=== PATIENT | male | born 1955 | race American Indian/Alaskan Native ===

== ENCOUNTER 2018-09-27 22:06 | Inpatient (IN) | payer MEDICARE, MEDICAID ==
--- NOTE | 2018-09-27 22:35 | ED PDOC ---
Arrival/HPI - General Chief Complaint: Trauma Time Seen by Provider: 09/27/18 22:16 Historian: Patient, Family - History of Present Illness Narrative History of Present Illness (Text): 09/27/18 22:34 Juma Padilla is a 63 year old male, whose past medical history includes hypertension, who presents to the ED status post fall 4 days ago. Patient states he accidentally tripped and fell on to his left side while at a doctor's office. Patient now complaining of worsening left-sided neck pain, shoulder, and upper chest pain. Patient denies any fever, chills, shortness of breath, nausea, vomiting, diarrhea, urinary symptoms, back pain, headache, dizziness, or any other complaints. Symptom Onset: Gradual Symptom Course: Unchanged Activities at Onset: Light Context: Home Past Medical History - Provider Review Nursing Documentation Reviewed: Yes - Infectious Disease Hx of Infectious Diseases: None - Tetanus Immunization Tetanus Immunization: Unknown - Cardiac Hx Hypertension: Yes Hx Pacemaker: No - Pulmonary Hx Chronic Obstructive Pulmonary Disease (COPD): No Hx Emphysema: No - Neurological HX Cerebrovascular Accident: No Hx Dementia: No Hx Seizures: No - Renal Hx Renal Disorder: No - Hematological/Oncological Hx Cancer: No - Musculoskeletal/Rheumatological Hx Musculoskeletal Disorders: No - Gastrointestinal Hx Gastroesophageal Reflux: No - Psychiatric Hx Depression: No Hx Emotional Abuse: No Hx Physical Abuse: No Hx Substance Use: No - Past Surgical History Past Surgical History: No Previous - Surgical History Hx Amputation: No Hx Appendectomy: No Hx Cholecystectomy: No Hx Gastric Bypass Surgery: No Hx Hysterectomy: No Hx Joint Replacement: No Hx Kidney Transplant: No Hx Liver Transplant: No Hx Mastectomy: No Hx Musculoskeletal Surgery: No Hx Open Heart Surgery: No Hx Orthopedic Surgery: No Hx Splenectomy: No Hx Valve Replacement: No - Suicidal Assessment Feels Threatened In Home Enviroment: No Family/Social History - Physician Review Nursing Documentation Reviewed: Yes Family/Social History: Unknown Family HX Smoking Status: Never Smoked Hx Alcohol Use: Yes Hx Substance Use: No Hx Substance Use Treatment: No Allergies/Home Meds Allergies/Adverse Reactions: Allergies No Known Allergies Allergy (Verified 09/11/11 02:08) Home Medications: Home Meds Medication Instructions Recorded Confirmed Lisinopril 10 mg PO DAILY 05/14/12 05/14/12 Review of Systems - Physician Review All systems were reviewed & negative as marked: Yes - Review of Systems Constitutional: Normal. absent: Fevers Eyes: Normal ENT: Normal Respiratory: Normal. absent: SOB, Cough Cardiovascular: Normal. absent: Chest Pain Gastrointestinal: Normal. absent: Abdominal Pain, Diarrhea, Nausea, Vomiting Genitourinary Male: Normal. absent: Dysuria, Frequency, Hematuria, Urinary Output Changes Musculoskeletal: Arthralgias (+left shoulder pain), Neck Pain, Other (+left upper rib pain). absent: Back Pain Skin: Normal Neurological: Normal Endocrine: Normal Hemo/Lymphatic: Normal Psychiatric: Normal Physical Exam Vital Signs Reviewed: Yes Vital Signs Temp Pulse Resp BP Pulse Ox 09/27/18 22:17 97.9 F 66 18 146/69 94 L Temperature: Afebrile Blood Pressure: Normal Pulse: Regular Respiratory Rate: Normal Appearance: Positive for: Well-Appearing, Non-Toxic, Comfortable Pain Distress: None Mental Status: Positive for: Alert and Oriented X 3 - Systems Exam Head: Present: Atraumatic, Normocephalic Pupils: Present: PERRL Extroacular Muscles: Present: EOMI Conjunctiva: Present: Normal Mouth: Present: Moist Mucous Membranes Neck: Present: Normal Range of Motion Respiratory/Chest: Present: Clear to Auscultation, Good Air Exchange, Tender to Palpation (Tenderness to palpation of left upper/lateral chest ). No: Respiratory Distress, Accessory Muscle Use Cardiovascular: Present: Regular Rate and Rhythm, Normal S1, S2. No: Murmurs Abdomen: No: Tenderness, Distention, Peritoneal Signs Back: Present: Normal Inspection. No: CVA Tenderness, Midline Tenderness, Paraspinal Tenderness Upper Extremity: Present: Normal ROM, NORMAL PULSES, Tenderness (Tenderness to palpation of left shoulder), Neurovascularly Intact, Capillary Refill < 2s. No: Cyanosis, Edema, Swelling, Erythema, Temperature Abnormalties, Deformity Lower Extremity: Present: Normal Inspection. No: Edema Neurological: Present: GCS=15, CN II-XII Intact, Speech Normal, Motor Func Grossly Intact, Normal Sensory Function, Normal Cerebellar Funct, Memory Normal Skin: Present: Warm, Dry, Normal Color. No: Rashes Psychiatric: Present: Alert, Oriented x 3, Normal Insight, Normal Concentration Medical Decision Making ED Course and Treatment: 09/27/18 22:34 Impression: 63 year old male complaining of left-sided neck pain, shoulder pain, and upper rib pain s/p fall 4 days prior. Plan: -- CT Cervical Spine w/o contrast -- CT Chest w/o contrast -- XR Left Shoulder -- Percocet -- Toradol -- Reassess and disposition Prior Visits: Notes and results from previous visits were reviewed. Progress Notes: 09/27/18 23:58 XR Left Shoulder reviewed, shows no acute processes. 09/28/18 00:23 CT Cervical Spine: ALIGNMENT: The coronal reconstructed images demonstrate mild side bending of the cervical spine, convex to the left. This may indicate paravertebral muscle spasm or mild levoscoliosis. DEGENERATIVE CHANGES: No significant canal stenosis or neural foraminal narrowing evident. Moderate degenerative arthritic changes are seen in the atlanto-dens interval. Marginal osteophytic spurring arises from the C3-7 vertebrae. SOFT TISSUES: The prevertebral soft tissues are within normal limits. BONES: No acute fracture or aggressive appearing osseous lesion. IMPRESSION: 1. No acute cervical spine abnormality. 2. 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 3. Mild side bending of the cervical spine, convex to the left. This could indicate paravertebral muscle spasm or mild levoscoliosis. Electronically signed on September 28, 2018 12:19:09 AM EDT by: Michael Pearson M.D., M.B.A., Certified By [employer] Trained MRI and CT Specialist CT Chest: Acute buckle fracture of the exited portion of the left third rib. Moderate paraseptal pulmonary emphysema. Bilateral basilar atelectatic pulmonary changes. Mild bilateral basilar pulmonary contusions. Mild benign chronic compression deformities of the midthoracic vertebral bodies. Secondary mild increase in the degree of dorsal kyphosis. Diffuse chronic Schmorl's node formation suggestive of chronic changes of Scheuermann's disease. Normal unenhanced main pulmonary artery and right and left pulmonary arteries. Normal bilateral peripheral pulmonary arteries. Normal thoracic aorta and visualized great vessels. There is no demonstrated aortic aneurysm. Normal heart and pericardium. Normal mediastinum. Normal hilar regions. Normal visualized trachea and bronchi. Normal pleura. Normal visualized upper abdomen. IMPRESSION: Acute buckle fracture of the exited portion of the left third rib. Moderate paraseptal pulmonary emphysema. Bilateral basilar atelectatic pulmonary changes. Mild bilateral basilar pulmonary contusions. Mild benign chronic compression deformities of the midthoracic vertebral bodies. Secondary mild increase in the degree of dorsal kyphosis. Diffuse chronic Schmorl's node formation suggestive of chronic changes of Scheuermann's disease. Electronically signed on September 28, 2018 12:16:43 AM EDT by: Ramonita Narvaez M.D., Certified by [facility], MSK, Neuroradiology 09/28/18 01:20 Reviewed EKG, NSR at 73 bpm. Prolonged QT. Non-specific ST/T wave changes. 09/28/18 01:[address] Nath, who is aware and agrees with plan. Accepts pt in to hospitalist service. Pt will go to remote telemetry observation for chest pain, pulmonary contusion, and rib fracture. resident medical officer notified. - Lab Interpretations I have reviewed the lab results: Yes - RAD Interpretation Casing Runner: ED Physician, Radiologist - EKG Interpretation Interpreted by ED Physician: Yes Type: 12 lead EKG - Scribe Statement The provider has reviewed the documentation as recorded by the Scribe Supriya Mcgovern Provider Scribe Attestation: All medical record entries made by the Scribe were at my direction and personally dictated by me. I have reviewed the chart and agree that the record accurately reflects my personal performance of the history, physical exam, medical decision making, and the department course for this patient. I have also personally directed, reviewed, and agree with the discharge instructions and disposition. Disposition/Present on Arrival - Present on Arrival Any Indicators Present on Arrival: No History of DVT/PE: No History of Uncontrolled Diabetes: No Urinary Catheter: No History of Decub. Ulcer: No History Surgical Site Infection Following: None - Disposition Have Diagnosis and Disposition been Completed?: Yes Diagnosis: Chest pain, Rib fracture, Pulmonary contusion Disposition: HOSPITALIZED Disposition Time: 02:01 Patient Plan: Observation Patient Problems: Current Active Problems Problem Status Onset Chest pain Acute Pulmonary contusion Acute Rib fracture Acute Condition: STABLE
[2018-09-27] MEDS ORDERED: Oxycodone/Acetaminophen 5/325 mg Tab PO STA (22:37)
[2018-09-28 00:55] LABS: HEMOGLOBIN 11.5 g/dL (14.0-18.0); MEAN CELL VOLUME 85.8 fl (80.0-105.0); MEAN CORPUSCULAR HEMOGLOBIN 28.2 pg (25.0-35.0); MEAN CORPUSCULAR HGB CONC 32.9 g/dl (31.0-37.0); MEAN PLATELET VOLUME 8.2 fl (7.0-11.0); RBC 4.08 10^6/uL (3.5-6.1); RED CELL DISTRIBUTION WIDTH 14.5 % (11.5-14.5); WHITE BLOOD COUNT 7.3 10^3/uL (4.5-11.0)
[2018-09-28 01:07] LABS: INR 1.14; PROTHROMBIN TIME 12.6 SECONDS (9.4-12.5)
[2018-09-28 01:17] LABS: ALB/GLOB RATIO 1.1 (1.1-1.8); ALT/SGPT 25 U/L (7-56); AST/SGOT 35 U/L (17-59); BLOOD UREA NITROGEN 17 mg/dL (7-21); CALCIUM 8.9 mg/dL (8.4-10.5); GFR NON-AFRICAN AMERICAN > 60
[2018-09-28 01:27] LABS: TROPONIN I < 0.01 ng/mL
--- NOTE | 2018-09-28 01:37 | CP.PCM.HP ---
<Royce Soliz - Last Filed: 09/28/18 03:26> History of Present Illness - History of Present Illness History of Present Illness: Resident History & Physical for Hospitalist Service Patient is a 63 year old male with past medical history of hypertension presenting with chief complaint of left sided shoulder and rib pain. Patient has had two falls in the past two weeks, states that each time he felt his legs become weak after which he would fall. After the fall he was able to get back up and resume his normal activities. Denies loss of consciousness, fevers, chills, chest pain, shortness of breath, abdominal pain, diarrhea, dysuria. PMH: hypertension PSH: denies SHx: denies alcohol or illicit drug use. Smokes 2 cigarettes for past 9 years. FHx: denies Allergies: NKDA Present on Admission - Present on Admission Any Indicators Present on Admission: No Review of Systems - Review of Systems All systems: reviewed and no additional remarkable complaints except (as stated in HPI) Past Patient History - Infectious Disease Hx of Infectious Diseases: None - Tetanus Immunizations Tetanus Immunization: Unknown - Past Social History Smoking Status: Never Smoked - CARDIAC Hx Hypertension: Yes Hx Pacemaker: No - PULMONARY Hx Chronic Obstructive Pulmonary Disease (COPD): No Hx Emphysema: No - NEUROLOGICAL HX Cerebrovascular Accident: No Hx Dementia: No Hx Seizures: No - RENAL Hx Chronic Kidney Disease: No - HEMATOLOGICAL/ONCOLOGICAL Hx Cancer: No - MUSCULOSKELETAL/RHEUMATOLOGICAL Hx Musculoskeletal Disorders: No - GASTROINTESTINAL Hx Gastroesophageal Reflux: No - PSYCHIATRIC Hx Depression: No Hx Emotional Abuse: No Hx Physical Abuse: No Hx Substance Use: No - SURGICAL HISTORY Hx Amputation: No Hx Appendectomy: No Hx Cholecystectomy: No Hx Gastric Bypass Surgery: No Hx Hysterectomy: No Hx Joint Replacement: No Hx Kidney Transplant: No Hx Liver Transplant: No Hx Mastectomy: No Hx Musculoskeletal Surgery: No Hx Open Heart Surgery: No Hx Orthopedic Surgery: No Hx Splenectomy: No Hx Valve Replacement: No Meds Allergies/Adverse Reactions: Allergies Allergy/AdvReac Type Severity Reaction Status Date / Time No Known Allergies Allergy Verified 09/11/11 02:08 Physical Exam - Constitutional Appears: Non-toxic, No Acute Distress - Head Exam Head Exam: ATRAUMATIC, NORMOCEPHALIC - Eye Exam Eye Exam: EOMI, Normal appearance - ENT Exam ENT Exam: Mucous Membranes Moist - Respiratory Exam Respiratory Exam: Chest Wall Tenderness, Clear to Auscultation Bilateral, NORMAL BREATHING PATTERN. absent: Accessory Muscle Use, Rales, Rhonchi, Wheezes, Respiratory Distress - Cardiovascular Exam Cardiovascular Exam: REGULAR RHYTHM, +S1, +S2. absent: Tachycardia, Systolic Murmur - GI/Abdominal Exam GI & Abdominal Exam: Normal Bowel Sounds, Soft. absent: Distended, Firm, Guarding, Rebound, Rigid, Tenderness - Extremities Exam Extremities exam: Positive for: normal inspection - Back Exam Back exam: NORMAL INSPECTION - Neurological Exam Neurological exam: Alert, CN II-XII Intact, Oriented x3 - Psychiatric Exam Psychiatric exam: Normal Affect, Normal Mood - Skin Skin Exam: Dry, Intact, Warm Results - Vital Signs Recent Vital Signs: Last Vital Signs Temp 97.9 F 09/27/18 22:17 Pulse 66 09/27/18 22:17 Resp 18 09/27/18 22:17 BP 146/69 09/27/18 22:17 Pulse Ox 94 L 09/27/18 22:17 - Labs Result Diagrams: 09/28/18 00:45 09/28/18 00:45 Labs: Laboratory Results - last 24 hr 09/28/18 09/28/18 09/28/18 00:45 00:45 00:45 WBC 7.3 RBC 4.08 Hgb 11.5 L Hct 35.0 L MCV 85.8 MCH 28.2 MCHC 32.9 RDW 14.5 Plt Count 358 MPV 8.2 PT 12.6 H INR 1.14 APTT 35.0 Sodium 141 Potassium 3.6 Chloride 104 Carbon Dioxide 28 Anion Gap 12 BUN 17 Creatinine 1.0 Est GFR ( Amer) > 60 Est GFR (Non-Af Amer) > 60 Random Glucose 101 Calcium 8.9 Total Bilirubin 0.3 AST 35 ALT 25 Alkaline Phosphatase 62 Lactate Dehydrogenase 563 Total Creatine Kinase 314 H Troponin I < 0.01 Total Protein 7.7 Albumin 4.0 Globulin 3.7 Albumin/Globulin Ratio 1.1 Assessment & Plan - Assessment and Plan (Free Text) Plan: s/p fall - CT cervical spine is negative for acute abnormalities - CT chest shows acute buckle fracture of the exited portion of the left third rib, mild bilateral basilar pulmonary contusions - Flexeril - Toradol and percocet PRN - PT eval - followup UDS, TSH, B12, vitamin D Case reviewed with Dr. Pham Soliz PGY-1 <Michelle Nath - Last Filed: 09/28/18 19:25> Results - Vital Signs Recent Vital Signs: Last Vital Signs Temp 98.5 F 09/28/18 08:19 Pulse 71 09/28/18 18:00 Resp 18 09/28/18 08:19 BP 127/68 09/28/18 08:19 Pulse Ox 97 09/28/18 08:19 - Labs Result Diagrams: 09/28/18 00:45 09/28/18 00:45 Labs: Laboratory Results - last 24 hr 09/28/18 09/28/18 09/28/18 00:45 00:45 00:45 WBC 7.3 RBC 4.08 Hgb 11.5 L Hct 35.0 L MCV 85.8 MCH 28.2 MCHC 32.9 RDW 14.5 Plt Count 358 MPV 8.2 PT 12.6 H INR 1.14 APTT 35.0 Sodium 141 Potassium 3.6 Chloride 104 Carbon Dioxide 28 Anion Gap 12 BUN 17 Creatinine 1.0 Est GFR ( Amer) > 60 Est GFR (Non-Af Amer) > 60 Random Glucose 101 Calcium 8.9 Total Bilirubin 0.3 AST 35 ALT 25 Alkaline Phosphatase 62 Lactate Dehydrogenase 563 Total Creatine Kinase 314 H CK-MB (CK-2) 1.4 CK-MB (CK-2) % Cancelled Troponin I < 0.01 Total Protein 7.7 Albumin 4.0 Globulin 3.7 Albumin/Globulin Ratio 1.1 Vitamin B12 25-OH Vitamin D Total TSH 3rd Generation Urine Opiates Screen Urine Methadone Screen Ur Barbiturates Screen Ur Phencyclidine Scrn Ur Amphetamines Screen U Benzodiazepines Scrn U Oth Cocaine Metabols U Cannabinoids Screen 09/28/18 09/28/18 09/28/18 00:45 05:00 05:00 WBC RBC Hgb Hct MCV MCH MCHC RDW Plt Count MPV PT INR APTT Sodium Potassium Chloride Carbon Dioxide Anion Gap BUN Creatinine Est GFR ( Amer) Est GFR (Non-Af Amer) Random Glucose Calcium Total Bilirubin AST ALT Alkaline Phosphatase Lactate Dehydrogenase Total Creatine Kinase CK-MB (CK-2) CK-MB (CK-2) % Troponin I Total Protein Albumin Globulin Albumin/Globulin Ratio Vitamin B12 280 25-OH Vitamin D Total 34.5 TSH 3rd Generation 3.40 Urine Opiates Screen Urine Methadone Screen Ur Barbiturates Screen Ur Phencyclidine Scrn Ur Amphetamines Screen U Benzodiazepines Scrn U Oth Cocaine Metabols U Cannabinoids Screen 09/28/18 13:10 WBC RBC Hgb Hct MCV MCH MCHC RDW Plt Count MPV PT INR APTT Sodium Potassium Chloride Carbon Dioxide Anion Gap BUN Creatinine Est GFR ( Amer) Est GFR (Non-Af Amer) Random Glucose Calcium Total Bilirubin AST ALT Alkaline Phosphatase Lactate Dehydrogenase Total Creatine Kinase CK-MB (CK-2) CK-MB (CK-2) % Troponin I Total Protein Albumin Globulin Albumin/Globulin Ratio Vitamin B12 25-OH Vitamin D Total TSH 3rd Generation Urine Opiates Screen Positive H Urine Methadone Screen Positive H Ur Barbiturates Screen Negative Ur Phencyclidine Scrn Negative Ur Amphetamines Screen Negative U Benzodiazepines Scrn Negative U Oth Cocaine Metabols Negative U Cannabinoids Screen Negative Attending/Attestation - Attestation I have personally seen and examined this patient.: Yes I have fully participated in the care of the patient.: Yes I have reviewed all pertinent clinical information: Yes Notes (Text): 09/28/18 19:25 seen and examined. discussed with resident. A&P as above.
[2018-09-28 02:00] LABS: CK-MB 1.4 ng/mL (0.0-3.6)
[2018-09-28] MEDS: Oxycodone/Acetaminophen 5/325 mg Tab PO PRN (02:57)
[2018-09-28 03:09] VITALS: BMI 27.2
[2018-09-28] MEDS: Albuterol-Ipratrop 3 mg / 0.5 (3 ml) UD IH SCH ×4 (07:42→19:25)
--- NOTE | 2018-09-28 08:43 | CT ---
Date of service: 09/27/2018 PROCEDURE: CT Cervical Spine without contrast HISTORY: injury COMPARISON: None available. TECHNIQUE: Axial computed tomography images were obtained of the cervical spine without the use of intravenous contrast. Coronal and sagittal reformatted images were created and reviewed. Radiation dose: Total exam DLP = 583.47 mGy-cm. This CT exam was performed using one or more of the following dose reduction techniques: Automated exposure control, adjustment of the mA and/or kV according to patient size, and/or use of iterative reconstruction technique. FINDINGS: VERTEBRAE: No fracture. Normal alignment. No destructive bony lesion. DISCS/SPINAL CANAL/NEURAL FORAMINA: No significant central canal or neural foraminal stenosis. Discs heights are grossly preserved. PARASPINAL SOFT TISSUES: Unremarkable. OTHER FINDINGS: The report concurs with the preliminary [facility] report IMPRESSION: No acute findings
--- NOTE | 2018-09-28 08:52 | CT ---
Date of service: 09/27/2018 PROCEDURE: CT Chest without contrast HISTORY: left upper chest injury COMPARISON: None available. TECHNIQUE: Contiguous axial images were obtained through the chest without intravenous contrast enhancement. Sagittal and coronal reconstructions were performed. Radiation dose: Total exam DLP = 702.05 mGy-cm. This CT exam was performed using one or more of the following dose reduction techniques: Automated exposure control, adjustment of the mA and/or kV according to patient size, and/or use of iterative reconstruction technique. FINDINGS: LUNGS: Multiple bulla are seen in the right upper lobe with the largest in the right apex. MEDIASTINUM: Unremarkable thoracic aorta. No aneurysm. Normal sized heart. Main pulmonary artery unremarkable. No vascular congestion. No lymphadenopathy. Aortic calcification PLEURA: No pleural fluid. No pneumothorax. BONES: There is a nondisplaced buckle type fracture of the left 3rd rib. There are no displaced fractures UPPER ABDOMEN: Grossly unremarkable. OTHER FINDINGS: The report concurs with the preliminary [facility] report IMPRESSION: There is a nondisplaced buckle type fracture of the left 3rd rib. There are no displaced fractures Emphysema with multiple bulla seen in the right upper lobe
[2018-09-28] MEDS ORDERED: Morphine 2 mg/ml ISec IVP STA (09:07)
[2018-09-28] MEDS: Enoxaparin 40 mg Syringe SC SCH (09:23)
--- NOTE | 2018-09-28 10:31 | RAD ---
Date of service: 09/27/2018 PROCEDURE: Radiographs of the Left Shoulder HISTORY: injury COMPARISON: No prior. TECHNIQUE: 3 views obtained. FINDINGS: BONES: There is an old fracture deformity of the left midclavicle. No acute fracture JOINTS: Normal. Glenohumeral and acromioclavicular joints preserved. No osteoarthritis. SOFT TISSUES: Normal. OTHER FINDINGS: None. IMPRESSION: No acute findings
--- NOTE | 2018-09-28 10:57 | CT ---
Date of service: 09/28/2018 PROCEDURE: CT Abdomen and Pelvis without intravenous contrast HISTORY: Pain COMPARISON: None. TECHNIQUE: Without contrast.. Contrast dose: Radiation dose: Total exam DLP = 551.62 mGy-cm. This CT exam was performed using one or more of the following dose reduction techniques: Automated exposure control, adjustment of the mA and/or kV according to patient size, and/or use of iterative reconstruction technique. FINDINGS: LOWER THORAX: Unremarkable. LIVER: Unremarkable. No gross lesion or ductal dilatation. GALLBLADDER AND BILE DUCTS: Unremarkable. PANCREAS: Unremarkable. No gross lesion or ductal dilatation. SPLEEN: Unremarkable. ADRENALS: Unremarkable. No mass. KIDNEYS AND URETERS: Unremarkable. No hydronephrosis. No solid mass. VASCULATURE: Unremarkable. No aortic aneurysm. No aortic atherosclerotic calcification or mural plaque present. BOWEL: Unremarkable. No obstruction. No gross mural thickening. APPENDIX: Unremarkable. Normal appendix. PERITONEUM: Unremarkable. No free fluid. No free air. LYMPH NODES: Unremarkable. No enlarged lymph nodes. BLADDER: Unremarkable. REPRODUCTIVE: Unremarkable. BONES: No acute fracture. OTHER FINDINGS: None IMPRESSION: Unremarkable non contrast enhanced CT of the abdomen and pelvis.
[2018-09-28] MEDS: Sodium Chloride 0.9% 1,000 ML IV SCH ×2 (13:04→22:34)
[2018-09-28 13:58] LABS: PHENCYCLIDINE, UR NEGATIVE (NEGATIVE)
[2018-09-28 13:59] LABS: BARBITURATES, UR NEGATIVE (NEGATIVE); BENZODIAZEPINES, UR NEGATIVE (NEGATIVE); OPIATES, UR POSITIVE (NEGATIVE)
[2018-09-28] MEDS: Morphine 2 mg/ml ISec IVP PRN ×2 (14:16→18:25)
--- NOTE | 2018-09-28 18:17 | CARD ---
APPROVED REPORT Date of service: 09/28/2018 EKG Measurement Heart [id number] <Conclusion> Normal sinus rhythm Nonspecific T wave abnormality Abnormal ECG
[2018-09-29] MEDS: Morphine 2 mg/ml ISec IVP PRN ×3 (00:29→09:36)
[2018-09-29 07:05] LABS: EOS # 0.1 (0.0-0.7); EOS % 0.9 % (1.5-5.0); LYMPH # 2.3 (1.2-3.4); LYMPH % 32.8 % (22.0-35.0); MEAN CELL VOLUME 86.3 fl (80.0-105.0); MEAN CORPUSCULAR HEMOGLOBIN 27.8 pg (25.0-35.0); MEAN CORPUSCULAR HGB CONC 32.2 g/dl (31.0-37.0); MEAN PLATELET VOLUME 8.7 fl (7.0-11.0); MONO # 0.5 (0.1-0.6); MONO % 7.4 % (1.0-6.0); RBC 4.32 10^6/uL (3.5-6.1); RED CELL DISTRIBUTION WIDTH 14.6 % (11.5-14.5); WHITE BLOOD COUNT 6.9 10^3/uL (4.5-11.0)
[2018-09-29 07:15] LABS: ALB/GLOB RATIO 1.2 (1.1-1.8); ALT/SGPT 22 U/L (7-56); AST/SGOT 31 U/L (17-59); BLOOD UREA NITROGEN 17 mg/dL (7-21); CALCIUM 8.7 mg/dL (8.4-10.5); GFR NON-AFRICAN AMERICAN > 60
[2018-09-29] MEDS: Sodium Chloride 0.9% 1,000 ML IV SCH (07:22)
[2018-09-29] MEDS: Albuterol-Ipratrop 3 mg / 0.5 (3 ml) UD IH SCH ×4 (07:43→20:12)
[2018-09-29] MEDS: Enoxaparin 40 mg Syringe SC SCH (09:36)
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
--- NOTE | 2018-09-29 19:26 | CP.PCM.PCO ---
Physician Communication Note - Physician Communication Note Physician Communication Note: Methadone Dosing Addendum Addendum: 09/29/18 19:25 Please note, nursing called to inform incorrect dosage of methadone was given today. Patient received 135mg of methadone instead of 175mg. Patient voicing no complaints or issues at this time; Okay to withold 40mg.
[2018-09-29] MEDS: Oxycodone/Acetaminophen 5/325 mg Tab PO PRN (21:35)
[2018-09-30] MEDS: Oxycodone/Acetaminophen 5/325 mg Tab PO PRN (05:56)
[2018-09-30] MEDS: Albuterol-Ipratrop 3 mg / 0.5 (3 ml) UD IH SCH ×4 (07:52→20:14)
[2018-09-30 08:02] LABS: BASO # 0.01 K/mm3 (0.0-2.0); BASO % 0.2 % (0.0-3.0); EOS # 0.1 (0.0-0.7); EOS % 1.6 % (1.5-5.0); HEMOGLOBIN 10.9 g/dL (14.0-18.0); LYMPH # 1.9 (1.2-3.4); LYMPH % 34.3 % (22.0-35.0); MEAN CELL VOLUME 86.4 fl (80.0-105.0); MEAN CORPUSCULAR HEMOGLOBIN 27.5 pg (25.0-35.0); MEAN CORPUSCULAR HGB CONC 31.8 g/dl (31.0-37.0); MEAN PLATELET VOLUME 8.6 fl (7.0-11.0); MONO # 0.6 (0.1-0.6); MONO % 11.6 % (1.0-6.0); RBC 3.97 10^6/uL (3.5-6.1); RED CELL DISTRIBUTION WIDTH 14.3 % (11.5-14.5); WHITE BLOOD COUNT 5.5 10^3/uL (4.5-11.0)
[2018-09-30 08:21] LABS: ALBUMIN 3.6 g/dL (3.0-4.8); ALT/SGPT 20 U/L (7-56); AST/SGOT 34 U/L (17-59); BLOOD UREA NITROGEN 14 mg/dL (7-21); CALCIUM 8.6 mg/dL (8.4-10.5); GFR NON-AFRICAN AMERICAN > 60
[2018-09-30] MEDS: Enoxaparin 40 mg Syringe SC SCH (08:59)
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
[2018-10-01 07:03] LABS: BASO # 0.02 K/mm3 (0.0-2.0); BASO % 0.3 % (0.0-3.0); EOS # 0.2 (0.0-0.7); EOS % 2.3 % (1.5-5.0); LYMPH # 2.5 (1.2-3.4); LYMPH % 37.9 % (22.0-35.0); MEAN CELL VOLUME 85.3 fl (80.0-105.0); MEAN CORPUSCULAR HEMOGLOBIN 27.8 pg (25.0-35.0); MEAN CORPUSCULAR HGB CONC 32.6 g/dl (31.0-37.0); MEAN PLATELET VOLUME 8.4 fl (7.0-11.0); MONO # 0.9 (0.1-0.6); MONO % 12.9 % (1.0-6.0); RBC 3.95 10^6/uL (3.5-6.1); WHITE BLOOD COUNT 6.6 10^3/uL (4.5-11.0)
[2018-10-01] MEDS: Albuterol-Ipratrop 3 mg / 0.5 (3 ml) UD IH SCH ×4 (07:39→18:56)
[2018-10-01 07:43] LABS: ALB/GLOB RATIO 1.1 (1.1-1.8); ALBUMIN 3.9 g/dL (3.0-4.8); ALT/SGPT 32 U/L (7-56); AST/SGOT 58 U/L (17-59); BLOOD UREA NITROGEN 13 mg/dL (7-21); CALCIUM 8.8 mg/dL (8.4-10.5); GFR NON-AFRICAN AMERICAN > 60
[2018-10-01] MEDS: Enoxaparin 40 mg Syringe SC SCH (09:14)
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
[2018-10-02 07:04] LABS: BASO # 0.02 K/mm3 (0.0-2.0); BASO % 0.3 % (0.0-3.0); EOS # 0.2 (0.0-0.7); EOS % 3.7 % (1.5-5.0); LYMPH # 2.6 (1.2-3.4); LYMPH % 39.4 % (22.0-35.0); MEAN CELL VOLUME 84.7 fl (80.0-105.0); MEAN PLATELET VOLUME 8.6 fl (7.0-11.0); MONO # 0.8 (0.1-0.6); MONO % 11.7 % (1.0-6.0); RBC 3.93 10^6/uL (3.5-6.1); RED CELL DISTRIBUTION WIDTH 13.9 % (11.5-14.5); WHITE BLOOD COUNT 6.6 10^3/uL (4.5-11.0)
[2018-10-02 07:25] LABS: ALB/GLOB RATIO 1.1 (1.1-1.8); ALBUMIN 3.7 g/dL (3.0-4.8); ALT/SGPT 30 U/L (7-56); AST/SGOT 64 U/L (17-59); BLOOD UREA NITROGEN 12 mg/dL (7-21); CALCIUM 8.7 mg/dL (8.4-10.5); GFR NON-AFRICAN AMERICAN > 60
[2018-10-02] MEDS: Albuterol-Ipratrop 3 mg / 0.5 (3 ml) UD IH SCH ×3 (08:25→22:04)
[2018-10-02] MEDS: Enoxaparin 40 mg Syringe SC SCH (09:45)
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
[2018-10-03] MEDS ORDERED: Morphine 2 mg/ml ISec IVP STA (05:26)
[2018-10-03 06:14] LABS: BASO # 0.02 K/mm3 (0.0-2.0); BASO % 0.3 % (0.0-3.0); EOS # 0.2 (0.0-0.7); EOS % 2.4 % (1.5-5.0); HEMOGLOBIN 10.7 g/dL (14.0-18.0); LYMPH # 2.9 (1.2-3.4); LYMPH % 41.9 % (22.0-35.0); MEAN CELL VOLUME 85.2 fl (80.0-105.0); MEAN CORPUSCULAR HEMOGLOBIN 27.3 pg (25.0-35.0); MEAN PLATELET VOLUME 8.6 fl (7.0-11.0); MONO # 0.7 (0.1-0.6); RBC 3.92 10^6/uL (3.5-6.1); RED CELL DISTRIBUTION WIDTH 14.2 % (11.5-14.5)
[2018-10-03 06:38] LABS: ALB/GLOB RATIO 1.1 (1.1-1.8); ALBUMIN 3.7 g/dL (3.0-4.8); ALT/SGPT 32 U/L (7-56); AST/SGOT 60 U/L (17-59); BLOOD UREA NITROGEN 13 mg/dL (7-21); CALCIUM 8.9 mg/dL (8.4-10.5); GFR NON-AFRICAN AMERICAN > 60
[2018-10-03 08:16] VITALS: BP 163/80; PULSE 53; RESP 18; TEMP 97.6; O2SAT 97
[2018-10-03] MEDS: Enoxaparin 40 mg Syringe SC SCH (10:27)
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
== END 2018-10-03 17:16 | disposition home health service (06) | DRG 206 ==
LOC: ED 22:06 → ERH 09-28 02:01 → 3RSO 09-28 02:42 → OBSVTOIN 09-29 16:41
PROVIDERS: ADMIT Internal Medicine; ATTEND Internal Medicine
DX: S22.32XA Fracture of one rib, left side, initial encounter for closed fracture (principal); S27.329A Contusion of lung, unspecified, initial encounter; F11.20 Opioid dependence, uncomplicated; I10 Essential (primary) hypertension; J43.9 Emphysema, unspecified; F17.210 Nicotine dependence, cigarettes, uncomplicated; R76.11 Nonspecific reaction to tuberculin skin test without active tuberculosis; M19.90 Unspecified osteoarthritis, unspecified site; M54.2 Cervicalgia; M40.209 Unspecified kyphosis, site unspecified; R00.1 Bradycardia, unspecified; T40.3X5A Adverse effect of methadone, initial encounter; R29.6 Repeated falls; R26.81 Unsteadiness on feet; W01.0XXA Fall on same level from slipping, tripping and stumbling without subsequent striking against object, initial encounter; Y92.531 Health care provider office as the place of occurrence of the external cause